=== PATIENT | female | born 1945 | race Caucasian/White ===

== ENCOUNTER 2025-01-17 09:39 | Emergency (ER) | payer MEDICARE, BC, SELFPAY ==
[2025-01-17] VITALS (7 sets, daily range): BP systolic 118–129; BP diastolic 50–81; PULSE 68–79; RESP 11–20; O2SAT 96–99
--- NOTE | 2025-01-17 09:30 | RT.EKG_ITS ---
APPROVED REPORT Exam: Resting ECG Reason for Exam: chest pain Patient Location: E HR:73 bpm ECG Measurements Heart Rate 73 AXIS IL 156 P 57 QRSd 133 QRS 40 QT 413 T 23 QTc 454 Conclusion Sinus rhythm...normal P axis, V-rate 60- 99 Right bundle branch block...QRSd>120, terminal axis(90,270)
--- NOTE | 2025-01-17 10:30 | DI.US_ITS ---
Exam(s) US UPPER EXTREMITY VENOUS RT EXAM: US UPPER EXTREMITY VENOUS RT CLINICAL HISTORY: recent PICC, now CP, concern for DVT TECHNIQUE: GRAYSCALE, COLOR, DOPPLER IMAGING OF THE VENOUS SYSTEM OF THE UPPER EXTREMITY-BILATERAL COMPARISON: No exams were available for comparison FINDINGS: This is a positive-abnormal study. There is intraluminal thrombus in the cephalic vein from the mid forearm level to the axillary junction with total clot length of 19 cm. There is no intraluminal thrombus within the axillary vein itself nor more proximally in the visualized subclavian vein.. No evidence of intraluminal thrombus in the basal again brachial veins. IMPRESSION: There is intraluminal thrombus (19 cm length) in the cephalic vein extending from the mid forearm level to just proximal to the axillary vein, as described above. Report called by myself to ER provider 01/17/2025 at 12:58 p.m. DATA REPOSITORY:
--- NOTE | 2025-01-17 10:30 | DI.CT_ITS ---
Exam(s) CT CHEST PE CTA EXAM: CT CHEST PE CTA CLINICAL HISTORY: Chest pain concern for PE. TECHNIQUE: Imaging Protocol: CT angiography of the chest was performed using pulmonary embolus protocol. Multi planar reconstructions were performed. CONTRAST MATERIAL: Intravenous: Omnipaque 350 Contrast volume: 100 cc COMPARISON: No exams were available for comparison FINDINGS: CHEST: PULMONARY ARTERIES: There is an intraluminal filling defect in a segmental vessel in the left lower lobe suspicious for pulmonary embolus at this level. There are no other intraluminal filling defects evident. LUNGS: There are no infiltrates nor evidence of pulmonary infarction.. There are no pleural effusions. MEDIASTINUM: There is no hilar nor mediastinal adenopathy. Visualized thyroid unremarkable. CARDIAC: Heart size normal. There is no pericardial effusion.Caliber of the thoracic aorta is within normal limits. No evidence of dissection. There is no significant shift of the interventricular septum. PARTIALLY VISUALIZED UPPERMOST ABDOMEN: There is no reflux of intravenous contrast into the intrahepatic IVC. There are hypodensities in the liver ranging up to 9 cm size. Probable cysts but difficult to accurately diagnosis on this type of study. The gallbladder is noted to be surgically absent. There are no adrenal masses. No splenomegaly. OSSEOUS: No fractures. No significant osseous lesions.. IMPRESSION: 1. Subtle suggestion of pulmonary embolus in a single left lower lobe vessel. No evidence of pulmonary infarct.No infiltrates and no pleural effusions. 2. No evidence of aortic dissection nor pericardial effusion. Normal heart size. 3. Multiple hypodensities in the liver ranging up to 9 cm size. Probably cysts but cannot determine accurately on this type of study. If clinically indicated can be further studied with contrast infused liver protocol MRI Report called by myself to ER provider 01/17/2025 at 12:16 p.m. RADIATION DOSE DELIVERED: 145.43mGy.cm Total DLP DATA REPOSITORY: All CT scans at this facility are submitted to the National Radiology Data Registry (NRDR) Dose Index Registry (DIR) with the [employer] (ACR). RADIATION OPTIMIZATION: All CT scans at this facility use at least one of these dose optimization techniques: automated exposure control; mA and/or kV adjustment per patient size (includes targeted exams where dose is matched to clinical indication); or iterative reconstruction.
--- NOTE | 2025-01-17 10:41 | W.ED.GENAD ---
Discharge Plan Disposition Patient Disposition: Home Condition: Good Discharge Details Clinical Impression: DVT (deep venous thrombosis), Pulmonary emboli Primary Care Provider: Blanca Frances ED Provider: Kirsten Wolfe Home Meds and New Rx's Prescriptions: New Eliquis 5 mg tablet 5 mg PO BID Qty: 70 0RF Rx Instructions: 10mg twice a day for 7 days (two tabs twice a day) then 5mg twice a day (1 tab) Continued multivitamin tablet,chewable 1 tab PO DAILY aspirin [Aspir-81] 81 mg tablet,delayed release (DR/EC) 81 mg PO DAILY Patient Comments: 09/13/18 takes 4x/week acetaminophen 500 mg tablet 1,000 mg PO HS atorvastatin 10 mg tablet See Rx Instructions .ROUTE .COMPLEX Qty: 90 3RF Dose Instruction: TAKE ONE TABLET BY MOUTH EVERY DAY FOR HIGH CHOLESTEROL Rx Instructions: TAKE ONE TABLET BY MOUTH EVERY DAY FOR HIGH CHOLESTEROL cholecalciferol (vitamin D3) 50 mcg (2,000 unit) capsule 50 mcg PO DAILY lisinopril-hydrochlorothiazide 20-12.5 mg tablet See Rx Instructions .ROUTE .COMPLEX Qty: 90 3RF Dose Instruction: TAKE ONE TABLET BY MOUTH EVERY DAY Rx Instructions: TAKE ONE TABLET BY MOUTH EVERY DAY Discontinued naproxen sodium [Aleve] 220 mg capsule 220 mg PO Q12H PRN (Reason: acute foot pain) Discharge Instructions Instructions: Pulmonary Embolism (Blood Clot in the Lungs) (DC), Apixaban, Deep Vein Thrombosis (DVT) ED Additional Instructions: As we discussed, you have a deep vein thrombosis at the insertion spot from your PICC line, as well as a small subsegmental clot in your left lower lung lobe. This is likely all from the PICC line being placed and irritation to the vessels. I have prescribed you Eliquis, you received your first dose for today, next dose will be this evening. You are being sent home with enough to start and then will need to knot picker cloth the rest of from your pharmacy. Please pay attention to the dosing as you have a loading dose of 10 mg twice a day for the next week followed by transition to 5 mg twice a day after that. Dr. Zhang is aware of your diagnoses and I encourage that you call to schedule follow-up appointment with her for the next 2 weeks. If you develop increased shortness of breath, difficulty breathing, increased pain or other new/worsening symptom please seek care urgently once again. Otherwise, please continue with the anticoagulation, do not take any more naproxen or anti-inflammatories. Should you strike your head or develop any bleeding, please seek care urgently once again. Referrals: Sebastián Zhang MD [ [facility] STAFF PHYSICIAN, Medicine] Discharge Data Discharge Date/Time-TO BE ENTERED AT DEPARTURE: 01/17/25 14:05 HPI General Date/Time Provider Initiated Documentation: 01/17/25 09:41. Limitations to Documentation: no limitations. Information obtained by: patient, family (), RN/MD, RN notes reviewed and old records reviewed. History of Present Illness 79 year old F presents to the emergency department with the chief complaint of Focal discomfort anterior left chest, described as mild, Quality is described as sharp (Feels like a needle), Patient reports no radiation. Patient started experiencing this day(s) and it has been constant. No relieving factors improve symptom(s), Movement worsens symptoms . Patient notes no other symptoms.. Patient did receive the following treatments prior to arrival, none Related Data Home Medications Medication Instructions Recorded Confirmed multivitamin 1 tab PO DAILY 03/01/18 01/17/25 aspirin 81 mg tablet,delayed 81 mg PO DAILY 09/13/18 01/17/25 release (Aspir-) acetaminophen 500 mg tablet 1,000 mg PO HS 04/21/21 01/17/25 cholecalciferol (vitamin D3) 50 50 mcg PO DAILY 12/06/22 01/17/25 mcg (2,000 unit) capsule lisinopril 20 See Rx Instructions .Route 08/22/24 01/17/25 mg-hydrochlorothiazide 12.5 mg .COMPLEX #90 tabs tablet apixaban 5 mg tablet (Eliquis) 5 mg PO BID #70 tabs 01/17/25 atorvastatin 10 mg tablet See Rx Instructions .Route 01/17/25 01/17/25 .COMPLEX #90 tabs Previous Rx's Medication Instructions Recorded lisinopril 20 See Rx Instructions .Route 08/22/24 mg-hydrochlorothiazide 12.5 mg .COMPLEX #90 tabs tablet apixaban 5 mg tablet (Eliquis) 5 mg PO BID #70 tabs 01/17/25 atorvastatin 10 mg tablet See Rx Instructions .Route 01/17/25 .COMPLEX #90 tabs Allergies Allergy/AdvReac Type Severity Reaction Status Date / Time codeine Allergy Unknown Headache Verified 01/17/25 08:54 erythromycin base AdvReac Unknown headaches Verified 01/17/25 08:54 General Stated Complaint: Chest Pain NORAH: 3 Review of Systems Constitutional Constitutional: Reports as per HPI, Denies chills, Denies fever(s) and Denies headache(s) Eyes Eyes: Denies change in vision ENT Ears, Nose, Mouth, and Throat: Denies dizziness and Denies headache(s) Cardiovascular Cardiovascular: Reports as per HPI, Denies dyspnea and Denies dyspnea on exertion Respiratory Respiratory: Reports as per HPI, Denies chest congestion, Denies cough, Denies pain on inspiration, Denies pain with cough, Denies dyspnea and Denies dyspnea on exertion Gastrointestinal Gastrointestinal: Reports as per HPI, Denies abdominal pain, Denies diarrhea, Denies nausea and Denies vomiting Integumentary/Breasts Skin/Breast: Reports as per HPI and Denies rash Neurologic Neurologic: Reports as per HPI, Denies dizziness and Denies headache(s) Exam Const General: cooperative, healthy appearing, comfortable, no acute distress and well developed Nutritional Appearance: well nourished and overweight Orientation: alert, awake and oriented x3 Chest Chest: normal inspection of the chest, normal palpation of entire chest wall and no crepitus Resp Effort & Inspection: normal respiratory effort, able to speak in complete sentences and no respiratory distress Auscultation: clear to auscultation bilaterally, no rales, no rhonchi and no wheezes Cardio Rate: regular rate Rhythm: regular rhythm Heart Sounds: S1 normal and S2 normal GI Inspection: normal to inspection, no edema and non-distended Palpation: soft and nontender Skin General skin exam: ecchymosis Neuro General: patient alert, patient awake and patient oriented x3 Cognition: normal cognition Speech: speech normal Gait: normal gait Extrem General: capillary refill normal, no pedal edema, no calf tenderness and normal gait Shoulder/upper arm images:  1. Area of PICC line insertion with surrounding ecchymosis. No trauma is noted elsewhere about the arm. She has 2+ distal pulses. She has no pain to palpation. No erythema or warmth. No palpable cord is appreciated. Course Vital Signs Vital signs: Vital Signs Pulse 79 01/17/25 09:54 Respiratory Rate 18 01/17/25 09:54 Blood Pressure 118/78 01/17/25 09:54 Pulse Oximetry 97 01/17/25 09:54 Pulse 79 01/17/25 09:54 Respiratory Rate 18 01/17/25 09:54 Blood Pressure 118/78 01/17/25 09:54 Pulse Oximetry 97 01/17/25 09:54 Medical Decision Making Patient is a pleasant 79-year-old female, brought in by at recommendation of primary care, presenting with chief complaint of left-sided chest pain that she describes as needle pain and that began a few days ago. She reports this has been fairly consistent but very mild, exacerbated with adduction of the left upper extremity. Patient was discharged from hospital 2 days ago after being admitted at [facility] [place] and outside hospital for a total of 7 days for SBO. During that time, patient had a PICC line in the right upper extremity for delivery of TPN. Patient reports that when she was seeing her primary care she mentioned this chest pain and there was concern for potential PE given the PICC line and they recommended coming in for further evaluation. She denies any shortness of breath. No exertional component to her symptoms. No cough. Pain is not made worse with any respiratory efforts. Patient reports she was heparinized while at [facility] [place] but is not on any continued anticoagulation. On exam, patient appears nontoxic. She is resting comfortably in no acute distress. She hemodynamically stable. She is currently asymptomatic. States that the symptoms seem to have been decreasing but she was not able to exacerbate the sharp discomfort she had in the chest with the movement of her left arm when she was with her primary care either. Lungs are clear. Normal cardiac exam. No lower extremity edema or calf tenderness. Exam of the right upper extremity is significant for the area where PICC line had been inserted with surrounding ecchymosis but no palpable cord tenderness, erythema. With the patient's recent hospitalization and chest pain, I agree with patient's primary care concern of potential pulmonary emboli. Will obtain a upper extremity DVT study as well as a CTA to evaluate for potential PE. Did not objectively know any evidence to suggest a CT DVT at this time. Patient is hemodynamically stable and I do not see indication that she has a massive PE. She is not having any continued abdominal pain to suggest complication associated with her recent bowel obstruction. Her appetite has returned and she is having normal p.o. intake without any complications. Passing flatus and bowel movements normally. Patient had her creatinine checked 2 days ago which was normal, will recheck but feel that we can move forward with CT scan prior to labs being returned. Labs reviewed, no leukocytosis. Stable H&H. Normal creatinine. Troponin within normal limits. While the patient is not having significant exertional symptoms, I did consider ACS given the location of her discomfort. Very subtle LLL in one vessel, subsegmental, far out. No infarct or pleural effusion. Several cysts in liver. DVT study shows a DVT on the right upper extremity adjacent to where PICC line had been placed. Discussed this findings with the patient and her . Also made primary care aware. Believe anticoagulation is warranted at this time. Will send patient home with Ericka for today and tomorrow and plan for primary care to work on authorization so that it may be continue to be covered by insurance thereafter. Strict return precautions were discussed. Again, no evidence to suggest right-sided heart strain or mass of etiology. She is hemodynamically stable and I do feel that outpatient management is appropriate at this point. Encourage follow-up with primary care. All of her questions or concerns were addressed and patient is in agreement with this plan. We also discussed the risks associated with anticoagulation. Dictation completed using [employer] dictation software. Please excuse any errors or horticulture worker anomalies that may remain. 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 Actinic keratoses (Acute) Dern Arthritis of right knee (Acute ~05/2020) 05/21/20 [facility] -Xray severe DJD Impaired fasting glucose (Chronic ~10/2018) 10/2018: 106 Body mass index (BMI) of 40.1-44.9 in adult (Chronic) Risk for coronary artery disease between 10% and 20% in next 10 years per Newton score (Chronic) RX statin Hypertension (Chronic) Medical History (Updated 01/17/25 @ 13:51 by BIANCA Garvin) Seborrheic keratosis Derm COVID (04/08/22) 11/2022 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 Diverticulosis of colon Abdominal wall hernia Abdominal wall hernia Surgical History H/O local excision of skin lesion 10/10/19 Excision of left forehead skin lesion by Dr Galdamez in [facility] (spec sent to pathology) Hx of hernia repair History of cholecystectomy Family History (Updated 09/03/24 @ 18:23 by Blanca Frances NP) Father , Suicide Alcohol abuse Suicide Mother , age 90 Hx of myocardial infarction Anxiety Non-Hodgkin lymphoma Alzheimer disease Brother Suicide Sister , Breast cancer in her 50s Breast cancer post-menopausal Social History Smoking/Tobacco Use Status: Never Smoking risk assessment performed?: Yes Alcohol Intake: current Alcohol Intake frequency: a few times a week Drug use: Never Substance use type: does not use Household members: spouse Housing: house Number of Children: 3 number of grandchildren: 1 current occupation: NON STIPENDARY TAVERN KEEPER, former nurse Do you think of yourself as: straight/heterosexual Current gender identity: female Other: youngest son lives at home, working on the farm What is your relationship status?: Panel score (0-1 are the most socially isolated patients): 1 What type of physical activity do you participate in: swimming Duration: 60-90 minutes/day Frequency: 3-4 times per week Sarah/Worship: Eps Seatbelt use: always Helmet use: Yes Drive intox or ride w/intox scoop driver: No Working smoke detector in home: Yes Fire extinguisher in home: Yes Carbon monox detector in home: Yes Do you feel safe at home: Yes Do you feel safe in your relationship?: Yes
[2025-01-17 10:54] LABS: Abs Immature Grans 0.04 10^3/uL (0.0-0.06); HCT 37.4 % (36.0-46.0); HGB 11.7 g/dL (11.2-15.7); Immature Grans % 0.6 %; MCH 27.8 pg (27.0-33.0); MCHC 31.3 % (32.0-36.0); MCV 89 fL (80-95); MPV 10.5 fL (8.0-11.0); Platelet Count 274 10^3/uL (130-400); RBC 4.21 10^6/uL (3.93-5.22); RDW 13.4 % (11.7-14.6); RDW-SD 43.6 fL; WBC 7.20 10^3/uL (4.4-10.8)
[2025-01-17 11:06] LABS: ALT 39 U/L (14-59); AST 29 U/L (15-37); Albumin 3.4 g/dL (3.4-5.0); Alkaline Phosphatase 91 U/L (46-116); Anion Gap 8.4 mmol/L (3-11); BUN 14 mg/dL (7-18); Bilirubin, Total 0.3 mg/dL (0.2-1.0); CO2 28.6 mmol/L (21.0-32.0); Calcium 9.2 mg/dL (8.5-10.1); Chloride 104 mmol/L (98-107); Glucose 101 mg/dL (74-106); Magnesium 1.9 mg/dL (1.8-2.4); Potassium 3.7 mmol/L (3.5-5.1); Sodium 141 mmol/L (136-145); Total Protein 7.2 g/dL (6.4-8.2); Troponin I 6 ng/L (<or=51)
[2025-01-17] MEDS: Omnipaque 350 MG/ML 500 ML BTL-Imaging package IJ (11:31)
[2025-01-17] MEDS: Normal Saline - Diluent 50 ML VIAL IJ (11:31)
[2025-01-17 11:54] LABS: Troponin I 6 ng/L (<or=51)
[2025-01-17] MEDS: Apixaban 5 MG TAB 10 MG PO (14:00)
[2025-01-17] MEDS: Apixaban 5 MG TAB 60 MG PO (14:00)
== END 2025-01-17 14:05 | disposition home or self-care (01) ==
PROVIDERS: Emergency Provider Physician Assistant; PCP Nurse Practitioner Adult Health
DX: R07.9 Chest pain, unspecified (principal); I26.99 Other pulmonary embolism without acute cor pulmonale; I82.621 Acute embolism and thrombosis of deep veins of right upper extremity
CPT/HCPCS: 99284; 99285; 71275; 80053; 93005; 83735; 84484; 85025; 93010; 93971